=== PATIENT | female | born 1995 | race Caucasian/White ===

== ENCOUNTER 2017-06-30 10:58 | Emergency (ER) | payer OTHER ==
[~2017-06-30] VITALS: Ht 165.1 cm; Wt 56.2 kg
[~2017-06-30 10:58] MED LIST: ATARAX,VISTARIL25 MG PO; HYDROXYZINE HCL25 MG PO; RISPERDAL2 MG PO; VISTARIL25 MG PO
[2017-06-30 12:01] LABS: HEMATOCRIT 38.3 % (36.0-46.0); HEMOGLOBIN 12.8 G/DL (11.9-15.5); MCH 28.6 PG (29.0-34.0); MCHC 33.4 G/DL (30.0-36.0); MCV 85.7 FL (83-99); PLATELET COUNT 232 K/uL (156-360); RBC DIS.WIDTH-CV 12.7 % (11.8-14.6); RBC DIS.WIDTH-SD 39.5 % (39-53); RED BLOOD COUNT 4.47 M/uL (3.80-5.20); WHITE BLOOD COUNT 4.3 K/uL (4.1-10.2)
[2017-06-30 12:14] LABS: CHLORIDE 106 mEq/L (99-109); POTASSIUM 4.5 mEq/L (3.7-5.4); SODIUM 139 mEq/L (136-147)
[2017-06-30 12:16] LABS: GLUCOSE 91 mg/dL (70-99)
[2017-06-30 12:20] LABS: CREATININE 0.8 mg/dL (0.6-1.3); GFR ESTIMATE (CALCULATED) > 59 mL/min/; UREA NITROGEN (BUN) 8 mg/dL (9-23)
[2017-06-30 12:22] LABS: TROP-I INTERPRETATION NEGATIVE; TROPONIN-I < 0.01 ng/mL (0.0-0.30)
[2017-06-30 13:59] VITALS: BP 124/64
== END 2017-06-30 14:01 | disposition home or self-care (01) ==
LOC: EME 10:58
DX: R07.89 Other chest pain (principal); Z82.49 Family history of ischemic heart disease and other diseases of the circulatory system; F42.9 Obsessive-compulsive disorder, unspecified; F20.9 Schizophrenia, unspecified; Z88.0 Allergy status to penicillin
CPT/HCPCS: 71020; 80048; 84484; 85027; 93005; 99281; 99284

== ENCOUNTER 2017-10-05 06:34 | Inpatient (IN) | payer OTHER ==
[~2017-10-05] VITALS: Ht 162.6 cm; Wt 51.1 kg
[2017-10-05] MEDS ORDERED: ZIPRASIDONE HCL40 MG PO (07:23)
[2017-10-05] MEDS ORDERED: HYDROXYZINE PAM25 MG PO (07:23)
[2017-10-05 07:41] LABS: BASOPHIL (%) 0.8 % (0-1); EOSINOPHIL (%) 0.8 % (0-5); HEMATOCRIT 39.9 % (36.0-46.0); HEMOGLOBIN 13.7 G/DL (11.9-15.5); IMMATURE GRANULOCYTE (%) 0.2 % (0.0-0.7); LYMPHOCYTE (%) 20.3 % (15-42); MCHC 34.3 G/DL (30.0-36.0); MCV 84.4 FL (83-99); MONOCYTE (%) 10.3 % (3-12); MONOCYTE COUNT 0.5 K/uL (0-0.8); NEUTROPHIL (%) 67.6 % (45-76); NEUTROPHIL COUNT 3.4 K/uL (1.8-6.4); PLATELET COUNT 257 K/uL (156-360); RBC DIS.WIDTH-CV 12.9 % (11.8-14.6); RBC DIS.WIDTH-SD 39.6 % (39-53); RED BLOOD COUNT 4.73 M/uL (3.80-5.20)
[2017-10-05 08:09] LABS: CHLORIDE 104 MEQ/L (99-109); POTASSIUM 4.3 MEQ/L (3.7-5.4); SODIUM 138 MEQ/L (136-147)
[2017-10-05 08:14] LABS: APPEARANCE SL.HAZY ((CLEAR)); BILIRUBIN NEGATIVE; BLOOD NEGATIVE; COLOR STRAW ((YELLOW)); GLUCOSE (STRIP) NEGATIVE; KETONES NEGATIVE; LEUKOCYTES NEGATIVE; NITRITE NEGATIVE; PROTEIN (STRIP) NEGATIVE; SPECIFIC GRAVITY 1.004 (1.000-1.030); UROBILINOGEN 0.2 MG/DL (0.2-1.0)
[2017-10-05 08:21] LABS: QUANTITATIVE HCG < 4.0 MIU/ML
[2017-10-05 08:27] LABS: AMPHETAMINE NEGATIVE (500 ng/mL); BARBITURATES NEGATIVE (200 ng/mL); BENZODIAZEPINES NEGATIVE (150 ng/mL); BUPRENORPHINE NEGATIVE (10 ng/mL); COCAINE NEGATIVE (150 ng/mL); METHADONE NEGATIVE (200 ng/mL); METHAMPHETAMINE NEGATIVE (500 ng/mL); OPIATES (MORPHINE) NEGATIVE (100 ng/mL); OXYCODONE NEGATIVE (100 ng/mL); PHENCYCLIDINE NEGATIVE (25 ng/mL); PROPOXYPHENE NEGATIVE (300 ng/mL); THC CANNABINOIDS NEGATIVE (50 ng/mL); TRICYCLIC ANTIDEPRESSANTS NEGATIVE (300 ng/mL)
[2017-10-05 08:30] LABS: BACTERIA 3+ /HPF; CALCIUM OXALATE CRYSTALS 1+ /HPF; EPITHELIAL CELLS RARE /HPF; MUCUS TRACE /LPF; RED BLOOD CELLS 0-5 /HPF (0-5); WHITE BLOOD CELLS 0-5 /HPF (0-5)
[2017-10-05 08:54] LABS: CREATININE 0.8 MG/DL (0.6-1.3); GFR ESTIMATE (CALCULATED) > 59 mL/min/; GLUCOSE 101 mg/dL (70-99); UREA NITROGEN (BUN) 9 mg/dL (9-23)
[2017-10-05 09:46] LABS: SERUM ETHYL ALCOHOL < 10 mg/dL
[2017-10-05 15:29] VITALS: BP 107/69
[2017-10-05 15:59] VITALS: BP 120/75
[2017-10-06 07:28] VITALS: BP 114/68
[2017-10-06 15:31] VITALS: BP 116/70
[2017-10-07 08:41] VITALS: BP 133/81
[2017-10-07 15:30] VITALS: BP 106/60
[2017-10-08 08:05] VITALS: BP 111/68
[2017-10-08 16:00] VITALS: BP 101/56
[2017-10-09 07:43] VITALS: BP 132/59
[2017-10-09 15:34] VITALS: BP 85/45
[2017-10-10 07:48] VITALS: BP 105/53
[2017-10-10 15:44] VITALS: BP 89/54
[2017-10-10 18:27] VITALS: BP 103/55
[2017-10-11 08:00] VITALS: BP 104/55
[2017-10-11 15:38] VITALS: BP 93/51
[2017-10-11 18:01] VITALS: BP 112/62
[2017-10-12 09:28] VITALS: BP 105/56
[2017-10-12 15:25] VITALS: BP 88/53
[2017-10-13 07:47] VITALS: BP 103/63
[2017-10-13 10:25] VITALS: BP 93/60
[2017-10-13 15:15] VITALS: BP 106/56
[2017-10-14 07:35] VITALS: BP 90/58
[2017-10-14] MEDS ORDERED: GEODON80 MG PO (09:30)
[2017-10-14] MEDS ORDERED: GEODON20 MG PO (09:30)
[2017-10-14] MEDS ORDERED: KLONOPIN1 MG PO (09:31)
== END 2017-10-14 11:37 | disposition home or self-care (01) | DRG 885 ==
LOC: EME 06:34 → 1WEST 10:52 → EDOF 10:52 → 1WEST 10:52 → EDOF 11:54 → ENRESERV 14:41 → 1WEST 15:04
PROVIDERS: Emergency Medicine
DX: F20.9 Schizophrenia, unspecified (principal); R45.851 Suicidal ideations; Z81.8 Family history of other mental and behavioral disorders; Z88.0 Allergy status to penicillin; Z91.14 Patient's other noncompliance with medication regimen
CPT/HCPCS: 80048; 81003; 84702; 85025; 90839; 97150 GO; 97166 GO; 99281; 99285; G0480; Q0177

== ENCOUNTER 2018-02-06 14:18 | Inpatient (IN) | payer OTHER ==
[~2018-02-06] VITALS: Ht 167.6 cm; Wt 52.6 kg
[~2018-02-06 14:18] MED LIST changes: +GEODON20 MG PO; +GEODON80 MG PO; +HYDROXYZINE PAM25 MG PO; +KLONOPIN1 MG PO; +ZIPRASIDONE HCL40 MG PO
[2018-02-06 15:09] LABS: HEMATOCRIT 39.9 % (36.0-46.0); HEMOGLOBIN 13.7 G/DL (11.9-15.5); MCH 29.1 PG (29.0-34.0); MCHC 34.3 G/DL (30.0-36.0); MCV 84.9 FL (83-99); PLATELET COUNT 225 K/uL (156-360); RBC DIS.WIDTH-CV 12.9 % (11.8-14.6); RBC DIS.WIDTH-SD 39.6 % (39-53); WHITE BLOOD COUNT 8.2 K/uL (4.1-10.2)
[2018-02-06 15:24] LABS: CHLORIDE 105 mEq/L (99-109); POTASSIUM 5.1 mEq/L (3.7-5.4); SODIUM 141 mEq/L (136-147)
[2018-02-06 15:25] LABS: GLUCOSE 89 mg/dL (70-99)
[2018-02-06 15:29] LABS: CREATININE 1.1 mg/dL (0.6-1.3); GFR ESTIMATE (CALCULATED) > 59 mL/min/
[2018-02-06 15:30] LABS: UREA NITROGEN (BUN) 15 mg/dL (9-23)
[2018-02-06 15:38] LABS: QUANTITATIVE HCG < 4.0 MIU/ML
[2018-02-07 07:46] VITALS: BP 94/51
[2018-02-07 16:19] VITALS: BP 87/53
[2018-02-08 07:47] VITALS: BP 125/56
[2018-02-08 15:20] VITALS: BP 131/72
[2018-02-09 07:48] VITALS: BP 111/56
[2018-02-09 15:23] VITALS: BP 95/54
[2018-02-10 07:50] VITALS: BP 98/62
[2018-02-10 16:39] VITALS: BP 98/56
[2018-02-11 07:52] VITALS: BP 106/66
[2018-02-11 16:17] VITALS: BP 98/57
[2018-02-11 21:28] VITALS: BP 98/58
[2018-02-12 07:58] VITALS: BP 105/62
[2018-02-13 08:00] VITALS: BP 74/40
[2018-02-13 16:10] VITALS: BP 110/55
[2018-02-14 09:02] VITALS: BP 95/54
[2018-02-14 16:45] VITALS: BP 99/54
[2018-02-15 08:15] VITALS: BP 86/47
[2018-02-15 15:28] VITALS: BP 101/58
[2018-02-16 07:54] VITALS: BP 110/68
[2018-02-16 17:08] VITALS: BP 126/75
[2018-02-17 07:36] VITALS: BP 91/54
[2018-02-17] MEDS ORDERED: RISPERDAL2 MG PO (11:40)
[2018-02-17] MEDS ORDERED: RISPERDAL3 MG PO (11:40)
[2018-02-17] MEDS ORDERED: KLONOPIN0.5 M1 PO (11:41)
== END 2018-02-17 14:57 | disposition home or self-care (01) | DRG 885 ==
LOC: EME 14:18 → EDOF 16:29 → 1WEST 16:29 → ENRESERV 17:25 → 1WEST 18:25
PROVIDERS: Nurse Practitioner Family
DX: F20.1 Disorganized schizophrenia (principal); F42.9 Obsessive-compulsive disorder, unspecified; F98.8 Other specified behavioral and emotional disorders with onset usually occurring in childhood and adolescence; S00.83XA Contusion of other part of head, initial encounter; X83.8XXA Intentional self-harm by other specified means, initial encounter; Z88.0 Allergy status to penicillin
CPT/HCPCS: 80048; 80164; 81003; 84702; 85027; 90837; 94799; 97150 GO; 97166 GO; 99281; 99285; J2060; J3486